=== PATIENT | female | born 1995 | race Caucasian/White ===

== ENCOUNTER 2018-07-30 13:38 | Emergency (ER) | payer OTHER ==
[2018-07-30] MEDS ORDERED: NS 1,000 ML IV ONE (14:16)
[2018-07-30 14:25] LABS: PLATELET COUNT 269 10^3/uL (150-400)
--- NOTE | 2018-07-30 15:17 | EDPHY ---
General Time Seen by Provider: 07/30/18 14:16 Narrative: CLINICAL IMPRESSION: [Melena, nausea ] ASSESSMENT/PLAN: 23-year-old female presents to the emergency department with complaints of dark black stools for the last 2 days associated with mild nausea. No abdominal pain , vomiting, fever, heavy NSAID use, alcohol abuse, or history of GI bleed. Vital signs stable, no signs of hemodynamic instability. Abdomen soft without focal peritoneal findings. Labs reassuring. Mild anemia, normal electrolytes, no metabolic disturbance. Guaiac positive. I do not feel this patient requires emergent CT imaging, admission, blood transfusion or emergent colonoscopy or endoscopy. She was referred to GI for follow-up and encouraged follow-up in the next 24-48 hours. Warning signs return to ED sooner outlined and discharge. DIFFERENTIAL DX: [ Abdominal pain includes but not limited to urinary tract infection, pyelonephritis, infection, ectopic , salpingitis, TOA, ovarian torsion, ovarian cyst, endometriosis, uterine fibroids, acute appendicitis, acute diverticulitis, small-bowel obstruction, constipation, upper GI bleed, lower GI bleed, medication side effect] [ED PROCEDURES:] [See lab and/or imaging results below ] ED COURSE: Patient seen and assessed by myself. No physical complaints. Vital signs stable. Labs reassuring. Guaiac pending. Patient requesting IV be removed. I do not suspect patient require emergent blood transfusion or colonoscopy. IV okay to remove. CHIEF COMPLAINT: [ Black stools, nausea] HPI: [23-year-old female presents to the emergency department with complaints of black stools for the last 2 days. Mild nausea. No reported vomiting or abdominal pain. No reported fever or chills. Patient does not report a history of black or dark colored stools. She is not taking NSAIDs or anti- inflammatories on a regular basis. Her only prescription medication is Accutane. She has routine negative test and normal lab work. She has never been told she has anemia. No personal or family history of coagulopathy. No personal or family history of colitis, Crohn's disease, or colon cancer. She reports no straining with bowel movements. She admits that she has felt a little more fatigued during workouts recently. She is otherwise healthy. 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 ] PAST MEDICAL HISTORY: Acne [See nurse/triage notes for additional history if applicable ] Pertinent Past Surgical History: None reported Family History: No family history of ulcerative colitis, Crohn's, colon cancer Social History: Nonsmoker, does not drink alcohol. [employer] student. REVIEW OF SYSTEMS: All other systems negative Constitutional: [No fever, no chills, appetite change.] Cardiovascular: [No chest pain, no palpitations.] Respiratory: [No cough, no shortness of breath.] Gastrointestinal: [No abdominal pain, no vomiting, mild nausea, diarrhea.] Musculoskeletal: [No back pain, joint swelling, joint pain, myalgias.] Skin: [No rashes, color change.] Neurological: [No headache, dizziness, weakness.] PHYSICAL EXAM: General Appearance: [Alert, oriented, appropriate, cooperative, NAD, well hydrated, non-toxic appearing, VSS, no evidence of hemodynamic instability no hypoxia.] Respiratory: [There are no retractions, lungs are clear to auscultation.] Cardiac: [Regular rate and rhythm, no murmurs or gallops.] Gastrointestinal: [Abdomen is soft, nontender, bowel sounds normal, no masses/ hernia, no rigidity, guarding or focal peritoneal findings. exam with scant dark colored stool. Guaiac positive No palpable rectal lesions. No external thrombosed hemorrhoid.] Neurological: [ Alert and oriented x 3, CN 2-12 grossly intact Skin: [Warm, dry, no rashes, no nodules on palpation. No petechiae or purpura] Musculoskeletal: [Extremities are symmetrical, full range of motion, no tenderness, deformity, swelling, or erythema.] Psychiatric: [Patient is oriented X 3, there is no agitation.] MEDICAL DECISION MAKING: Patient was seen independently. Secondary supervising physician at time of evaluation was [ Dr. Love]. Diagnosis: Melena, nausea. New, requires workup Summary: [ See Assessment and Plan for summary of ED visit ] Clinical lab tests: [ ordered / reviewed]. Patient Progress: Improved, stable for discharge. - History Smoking Status: Never smoked - Objective Vital Signs: Initial Vital Signs Temperature (C) 36.3 C 07/30/18 13:50 Heart Rate 61 07/30/18 13:50 Respiratory Rate 16 07/30/18 13:50 Blood Pressure 111/73 07/30/18 13:50 O2 Sat (%) 100 07/30/18 13:50 O2 Delivery Mode Room Air Allergies/Adverse Reactions: No Known Allergies Allergy (Unverified 07/30/18 13:49) Laboratory Results: Laboratory Results 07/30/18 14:15 07/30/18 14:15 Medications Given: Discontinued Medications Sodium Chloride (Ns) 1,000 mls @ 0 mls/hr IV EDNOW ONE; Wide Open PRN Reason: Protocol Stop: 07/30/18 14:17 Last Admin: 07/30/18 14:25 Dose: 1,000 mls Departure - Departure Disposition: Home, Routine, Self-Care Clinical Impression: Melena Condition: Good Instructions: Melena (ED) Additional Instructions: DISCHARGE INSTRUCTIONS FROM YOUR DOCTOR Thank you for visiting our emergency department today. You were treated by a physician recruitment and outreach assistant today and your case was reviewed with our ED Attending physician. Please keep in mind that discharge from the emergency department does not mean that there is nothing wrong - it simply means that we have not identified an emergency condition that requires further evaluation or treatment in the hospital. You should always plan to follow up with primary care for re- evaluation of your condition in the next 2-3 days. If you have been referred to a specialist, please call as soon as possible (today or tomorrow) to schedule your follow up appointment at the appropriate time. YOU DO HAVE BLOOD IN HER STOOL BUT REMAINDER OF LABS ARE STABLE. MILD ANEMIA NOTED. VITAL SIGNS STABLE. YOU WERE GIVEN A REFERRAL TO GI. PLEASE CALL THEM TODAY OR TOMORROW, LET THEM KNOW YOUR IN THE EMERGENCY DEPARTMENT AND THAT YOU NEED FOLLOW-UP CARE. PLEASE MONITOR SYMPTOMS CLOSELY, STAY WELL-HYDRATED. RETURN TO THE ER FOR INCREASED STOOL OUTPUT, ABDOMINAL PAIN, FEVER, LIGHTHEADEDNESS, SYNCOPAL EPISODES, OR ANY OTHER CONCERN. People present with illnesses and injuries in different ways, and it is always possible that we have missed something. You may always return for re-evaluation if symptoms worsen or if they are not improving or if you develop new/different symptoms. Again, thank you for choosing our emergency department. We hope that you feel better. Referrals: Makenzie Dexter, RN, MARKET RESEARCH EXECUTIVE [Primary Care Provider] - 1-2 days without fail Thiago Thayer MD, FACG [Medical Doctor] - 2-3 days without fail
[2018-07-30 15:30] VITALS: BP 120/71
== END 2018-07-30 15:30 | disposition home or self-care (01) ==
DX: K92.1 Melena (principal); R11.0 Nausea; E86.9 Volume depletion, unspecified